=== PATIENT | female | born 1965 | race Caucasian/White ===

== ENCOUNTER → 2018-12-05 09:41 | Outpatient (CLI) | payer OTHER, SELFPAY ==
[2018-12-05 10:04] LABS: Add Manual Diff / Slide Review NO; Basophils Absolute Auto 0 /uL (0-100); Basophils Percent Auto 0.5 % (0-2); Eosinophils Absolute Auto 0 /uL (0-450); Eosinophils Percent Auto 0.9 % (2-4); Hemoglobin 14.2 g/dL (12.0-16.0); Lymphocytes Absolute Auto 1500 /uL (1100-4500); Lymphocytes Percent Auto 28.1 % (25-40); Mean Corpuscular HGB Conc 34.6 % (30-36); Mean Corpuscular Hemoglobin 32.6 PG (26-34); Mean Corpuscular Volume 94.4 fL (80-100); Monocytes Absolute Auto 400 /uL (0-900); Monocytes Percent Auto 7.1 % (3-14); Neutrophils Absolute Auto 3300 /uL (1500-7000); Neutrophils Percent Auto 63.4 % (50-75); Platelet Count 174 X10^3/uL (150-400); Red Blood Cell Count 4.34 X10^6/uL (4.0-5.2); Red Cell Distribution Width 13.2 % (11.6-14.8); White Blood Cell Count 5.2 X10^3/uL (4.5-11.0)
[2018-12-05 10:19] LABS: Carbon Dioxide 26 mmol/L (22-32); Chloride 106 mmol/L (98-107); HEMOLYSIS < 15 (0-50); Potassium 3.8 mmol/L (3.4-5.1); Sodium 142 mmol/L (137-145)
== END ==
PROVIDERS: Family Provider Family Medicine; PCP Family Medicine; Visit Provider Orthopaedic Surgery
DX: M17.11 Unilateral primary osteoarthritis, right knee (principal); Z01.818 Encounter for other preprocedural examination; Z01.812 Encounter for preprocedural laboratory examination
CPT/HCPCS: 36415; 80051; 85025; 93005

== ENCOUNTER 2018-12-12 09:04 | Inpatient (IN) | payer OTHER, SELFPAY ==
[2018-12-05 12:32] VITALS: BMI 20.8
[2018-12-12] VITALS (12 sets, daily range): BP systolic 88–130; BP diastolic 47–76; PULSE 54–80; RESP 13–20; TEMP 35.5–36.8; O2SAT 92–100; BMI 20.8
--- NOTE | 2018-12-12 09:26 | DI.RAD.S_ITS ---
PROCEDURE: XR KNEE RT 1TO2V INDICATIONS: TKA TECHNIQUE: 2 view(s) of the knee acquired. COMPARISON: None. FINDINGS: Bones: Patient is status post knee joint arthroplasty. Hardware components are in expected positions. Visualized bony structures are intact. Soft tissues: Overlying postoperative changes are noted. IMPRESSION: Expected postoperative appearance. Dictated by: Silverio Downey M.D. on 12/12/2018 at 15:56 Approved by: Silverio Downey M.D. on 12/12/2018 at 15:56
--- NOTE | 2018-12-12 09:28 | PM.PREOP ---
Pre-operative Note Interval Note History & Physical reviewed/Exam performed by Physician: Yes Changes to H&P: No
--- NOTE | 2018-12-12 09:30 | P.OP_ITS ---
Operative Date/Time/Diagnoses Date of procedure: 12/12/18 Time of procedure: 12:24 Pre-op diagnosis: Right knee osteoarthritis Post-op diagnosis: same Procedure & Clinicians Procedure: Right total knee arthroplasty Same procedure as scheduled: Yes Indications: The patient presents today for total knee arthroplasty after failure of conservative treatment. The nature of the procedure including the risks and benefits, alternatives, postoperative course and expected outcome were discussed and all questions answered. Consent was obtained. Operative site confirmed and marked. Surgeon: Sebas Dumont Technical Maintenance Specialist: Daniel Dhaliwal Anesthesia Type: General, Peripheral nerve block and Local Operative Notes Findings: Osteoarthritis with valgus alignment. Closure Type: primary Specimen(s): none sent Prosthetic devices, grafts, tissues, transplants, or devices: Zelaya and Nephew Rocky BCS: 3 femoral component, 2 tibial component, 9 mm BCS polyethylene tray and 29 mm round patella Applied: implant(s) Estimated Blood Loss (mL): 20 Blood products transfused: none Tourniquet time (min): 50 Procedure in detail: The patient was taken to the operative suite and placed under general anesthesia with an adductor nerve block. There was 10 cc of Exparel in then the block. The patient was given prophylactic antibiotics prior to surgery. The patient was also given tranexamic acid, 1 g, just prior to surgery for postoperative hemostasis. The lateral knee was prepped and the joint injected with 20 mL of 1% Lidocaine with epinephrine. The knee was then prepped and draped in usual sterile fashion. The leg was exsanguinated with an Esmarch dressing and the tourniquet raised to 250 torr. A 15 cm anterior incision was made. Next a medial trivector arthrotomy was made. The extensor mechanism was marked to ensure accurate repair. Initial exposing dissection was carried out medially and laterally. The knee was then extended and the patellar thickness was measured and a cut made removing approximately 9 mm of bone. The patella was then sized and drilled. Some excess lateral bone was excised and the patellofemoral ligament released. The knee was then flexed and the intramedullary femoral guide latosha placed. The distal femoral cut was made in 6 ? of valgus at the + 0 position. The femoral size was measured and the appropriate cutting block was then placed and the anterior, posterior and chamfer cuts made. The extra medullary tibial alignment latosha was then placed along the anatomic axis of the tibia approximating the normal slope. The guide was set to remove approximately 7-8 mm from the less affected medial side. The proximal tibial cut was then made with an oscillating saw. All meniscus and bony debris was then removed. Flexion extension gaps were checked. No specific balancing was required. The knee was slightly tighter medially than laterally both in flexion and extension. The soft tissues were then injected with a combination of 20 mL of half percent Marcaine with epinephrine and 10 mL of Exparel. The trial components were then placed. The knee went into full extension and flexion beyond 120?. There was good medial- lateral balance throughout motion with just slight increased laxity laterally. Patellar tracking was excellent. The trial components were removed and the knee was cleansed with Pulsavac irrigation and dried. The final components were cemented in with high viscosity vacuum mixed bone cement with antibiotics. The knee was held in extension and the patellar clamp until the cement had adequately cured. The knee was irrigated and inspected for any further debris. The knee was then irrigated with dilute Betadine solution. The extensor mechanism was closed with 5 interrupted #1 Vicryl sutures in 90 degrees of flexion. The joint was then injected with a combination of 1 g of tranexamic acid and 20 mL of quarter percent Marcaine with epinephrine. The subcutaneous tissue was closed with 2-0 Vicryl. The skin was closed with nella and surgical adhesive. An Aquacell dressing and Mustapha wrap were then applied. The patient tolerated the procedure well and was returned to recovery room in good condition. Complications: none Condition: stable Disposition: PACU Plan for aftercare: Critical access hospital protocol for total knee arthroplasty.
[2018-12-12] MEDS: LACTATED RINGERS 1,000 ML 42 ML IV ×2 (09:47→12:11)
[2018-12-12] MEDS: ACETAMINOPHEN 325 MG TABLET 975 MG PO ×3 (09:48→22:27)
[2018-12-12] MEDS: CELECOXIB 200 MG CAPSULE PO (09:48)
[2018-12-12] MEDS: PREGABALIN 75 MG CAPSULE PO (09:48)
[2018-12-12] MEDS: MIDAZOLAM 2 MG/2 ML VIAL IV (10:27)
[2018-12-12] MEDS: fentaNYL 100 MCG/2 ML INJ 50 MCG IV (10:28)
[2018-12-12] MEDS: CEFAZOLIN 2 GM/100 ML FROZ.PIGGY IV ×2 (10:58→18:12)
[2018-12-12] MEDS: BUPIVACAINE 0.25% W/ EPI (PF) 40 ML, BUPIVACAINE LIPOSOME 266 MG, SODIUM CHLORIDE 0.9% ... INJ (11:33)
[2018-12-12] MEDS: LIDOCAINE 1% W/EPI INJ 20 ML INJ (11:41)
--- NOTE | 2018-12-12 11:45 | SUR.OPER ---
Supine on padded OR bed. Pillow under head, arms secured on padded armboards <90 degree abduction. Safety belt across torso. Non-operative leg secured with tape over blanket over lower leg. Operative leg secured in DeMayo/Hong positioner. Foam padded brace at thigh of operative leg.
[2018-12-12] MEDS: BUPIVACAINE 0.25% W/ EPI (PF) 20 ML, TRANEXAMIC ACID 1,000 MG, SODIUM CHLORIDE 0.9% 10 ML INJ (12:12)
[2018-12-12] MEDS: LACTATED RINGERS 1,000 ML 125 ML IV (15:06)
[2018-12-12] MEDS: HYDROMORPHONE 2 MG TABLET PO ×2 (15:06→22:37)
--- NOTE | 2018-12-12 16:10 | PC.NURSE ---
Ortho: Recieved from pacu 53 y/o f s/p tka. Hx of thoracotomy on the rt upper and middle lobes. Pt is a current smoker, lungs are actually clear but diminished. Pt on Ra is 99-100%. sl nausea and then a short time later did have a small emesis. Pt given zofran per request. nausea resolved. Block is starting to wear off and started having some pain. Dilaudid and tylenol given po and will recheck with pt to make sure it is effective. Rt leg with katerine wrap and aquacel dressing is underneath. Ice pack in place, moves toes sl. Has brisk cap refill, ppp feet =/warm. During report pt reporting she is still in pain and the oncoming nurse will give some more pain medication for her. SCD also turned off at this time as pt reports the pumping is causing her to hurt more. Will see how new pain meds work. Cont w/poc.
[2018-12-12] MEDS: HYDROMORPHONE 0.5 MG INJ IV (18:04)
[2018-12-12] MEDS: KETOROLAC 30 MG/ML VIAL IV (18:32)
--- NOTE | 2018-12-12 19:10 | PC.NURSE ---
Addendum entered by Sada Bates R.N. 12/12/18 23:04: pt up to BS to void. Reporting 2/10 pain and no issues with voiding. Post-void bladder scan resulted in 14mL in bladder. Administered PO Dilaudid to be proactive with pain management. Original Note: SYBIL Shift pt AO and receptive to care. Aquacel with Mustapha wrap CDI. LR infusing at 125/hr with intermittent ABX. pt reporting 8/10 pain at start of shift. No breakthrough pain medications in JUL so I called Dr. Dumont. Julia gave a telephone order for ketoralac 30mg, IV NOW and a verbal for breakthrough protocol 0.5mg IV Dilaudid. After a Pixis issue, I administered 0.5 Dilaudid IV at 1800 to relieve bladder spams increasing to a 9/10. pt voided 500 at BSC and pain decreased to 5/10. Obtained a post-void bladder scan with resulted with 380mL still in bladder. After a conversation, pt agreed to eat dinner and try and void again before needing to be catheterized. I also administered 30mg IV Ketoralac IV (one-time dose). pt vomited 20mL of mostly cucumber and tomato, but felt relieved and requested soup instead of her salad. pt resting with eyes closed currently.
[2018-12-12] MEDS: ASPIRIN EC 81 MG TABLET PO (22:27)
--- NOTE | 2018-12-12 23:05 | PC.NURSE ---
Nicotine patch mentioned that asked for a nicotine patch to be ordered, although I do not see it listed in pt's MAR. I discussed with that I will add this to my report and that they should remind the PA tomorrow morning.
[2018-12-13] VITALS: BP 106/74; PULSE 70; RESP 14; TEMP 36.8; O2SAT 96
[2018-12-13] MEDS: LACTATED RINGERS 1,000 ML 125 ML IV (00:04)
[2018-12-13] MEDS: HYDROMORPHONE 2 MG TABLET PO ×3 (01:43→07:59)
[2018-12-13] MEDS: CEFAZOLIN 2 GM/100 ML FROZ.PIGGY IV (01:43)
[2018-12-13 04:40] VITALS: BP 118/73; PULSE 81; RESP 20; TEMP 36.9; O2SAT 95
[2018-12-13 05:58] LABS: Hematocrit 30.6 % (36-46); Hemoglobin 10.4 g/dL (12.0-16.0)
[2018-12-13 07:30] VITALS: BP 119/62; PULSE 77; RESP 13; TEMP 37.3; O2SAT 98
[2018-12-13] MEDS: ASPIRIN EC 81 MG TABLET PO (07:59)
[2018-12-13] MEDS: MELOXICAM 7.5 MG TABLET 15 MG PO (07:59)
[2018-12-13] MEDS: ACETAMINOPHEN 325 MG TABLET 975 MG PO (08:00)
[2018-12-13] MEDS: NICOTINE 21 MG PATCH TOP (09:23)
--- NOTE | 2018-12-13 09:30 | PT.IIE ---
Current Diagnoses Unilateral post-traumatic osteoarthritis, right knee (12/12/18) Surgery Performed Operation Date: 12/12/18 11:15 Actual Procedures p Total Knee Arthroplasty(Right) - Sebas Dumont MD Surgical History (Last Updated 12/05/18 @ 13:20 by Rere Harris, RN) H/O total hysterectomy with bilateral salpingo-oophorectomy (BSO) (Acute ~1998) History of bladder surgery (Acute) History of thoracic surgery (Acute ~10/2005) Hx of arthroscopy of right knee (Acute 01/02/17) Hx of dilation and curettage (Acute) Hx of exploratory laparotomy (Acute) Hx of oral surgery (Acute 11/29/18) S/P breast lumpectomy (Acute) Medical History (Last Updated 12/05/18 @ 13:24 by Rere Harris RN) Cervical cancer (Acute ~1998) Chronic cough (Acute) Current every day smoker (Acute) PADRON (dyspnea on exertion) (Acute) Depression (Acute) Endocrine pancreas disorder (Acute ~2017) Esophageal dilatation (Acute ~2017) Fistula (Acute) Lung cancer (Acute ~09/2005) Physical Therapy Inpatient Evaluation/Re-Eval M1 PT/OT-IP Prior Functional Status Start: 12/13/18 13:15 Freq: NEEDED Status: Active Protocol: Document 12/13/18 09:30 AB (Rec: 12/13/18 13:24 [id number]) Medical Review Prior Functional Status Medical History Reviewed Yes Communication able to make needs known Mobility and Gait pt stated that she is independent with all mobilities and ambulation without AD Social History Household Members spouse Living Arrangements House Number of Floors (Floors) One Floor Number of Stairs To Enter/Railing? 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 PT-IP Current Condition Start: 12/13/18 13:15 Freq: NEEDED Status: Active Protocol: Document 12/13/18 09:30 AB (Rec: 12/13/18 13:24 [id number]) Physical Therapy Current Condition Current Condition Evaluation Date 12/13/18 Treatment Diagnosis s/p R TKA; difficulty in walking Onset Date 12/12/18 Weight Bearing Status Weight Bearing Status Weight Bear as Tolerated M3 PT-IP Subjective Start: 12/13/18 13:15 Freq: NEEDED Status: Active Protocol: Document 12/13/18 09:30 AB (Rec: 12/13/18 13:24 [id number]) Subjective Physical Therapy Visit Type Type Initial Evaluation Visit Start Time 09:30 Visit Stop Time 10:15 Total Visit Minutes 45 Number of BIRD SITTER Visits 0 Physical Therapy Visit Comments Patient Comments pt agreed to do PT; spouse present Therapy Pain Assessment Pain When Pain Assessed During Mobility Pain Present Pain Present Pain Reported Location Right Knee Intensity 3 Scale Used Numeric (1 - 10) Pain Management Techniques Apply Cold Re-positioning Timing of Activity with Medications M4 PT-IP Mobility and Gait Start: 12/13/18 13:15 Freq: NEEDED Status: Active Protocol: Document 12/13/18 09:30 AB (Rec: 12/13/18 13:24 [id number]) PT-Bed Mobility Assessment Supine to Sit Supine to Sit Standby Assistance Sit to Supine Sit to Supine Standby Assistance Scooting Scooting to Edge of Bed Standby Assistance PT-Transfer Assessment Sit to and From Stand Sit to and from Stand Standby Assistance Equipment Transfer Assistive Device Gait Belt Front Wheeled Walker Orthotic/Prosthetic Devices or Brace: No Transfers Transfer Destination Chair Transfer Technique pt ambulated using FWW Transfer Ability Level of Assist Standby Assistance Contact Guard Assistance Use of Upper Extremities Gait Assessment Gait Gait Assistance Required: Standby Assistance Contact Guard Assist Distance (Feet) 100 Able to Maintain Weight Bearing Status Yes During Gait Assistive Devices Assistive Device Gait Belt Front Wheeled Walker Orthotic/Prosthetic Devices or Brace: No Gait Deviations General Gait Pattern Antalgic Decreased Stride Length Decreased Feet Clearance Narrow Based Gait Factors Limiting Gait Function Factors Limiting Gait Function Decreased Activity Tolerance Decreased Strength Limited Range of Motion Pain Poor Balance Poor Safety Awareness Comments Gait Comments pt ambulated ~ 100 ft x 2 using FWW SBA to CGA. caregiver training conducted. educated spouse on how to use safety belt and how to assist pt. spouse was able to assist pt with ambulation. Stair Climbing Assessment Evaluation Level of Assist On Stairs Minimal Assistance Devices Stair Climbing Assistive Devices Front Wheel Walker Technique/Endurance Stair Climbing Direction Ascend and Descend Stair Climbing Technique Step to Step Number of Steps Climbed 1 Query Text: Stair Climbing Set # Repetitions (reps) 2 Comments Stair Climbing Comments pt completed up/down platform step min A and cues. Spouse educated on how to assist pt and was able to assist pt with stair climbing safely. PT-Balance Assessment Sitting Balance and Reactions Static Sitting Balance Ability Good Dynamic Sitting Balance Ability Good Standing Balance and Reactions Static Standing Balance Ability Fair Dynamic Standing Balance Ability Fair Device Used FWW M5 PT-IP Objective Assessments Start: 12/13/18 13:15 Freq: NEEDED Status: Active Protocol: Document 12/13/18 09:30 AB (Rec: 12/13/18 13:24 [id number]) Orientation Orientation/Cognition Level of Alertness Alert Orientation Name Age Birthday Month Date Year Day of Week Place Situation Safety Awareness Understands Safety Issues Memory Description No Deficits Noted Gross Range of Motion Lower Extremity ROM Assessment Right Impaired Impairments R knee: flexion: ~ 70 deg extension: lacking ~ 20 deg Strength Lower Extremity Strength Hip 4-/5 Knee 3+/5 Coordination Assessment Gross Coordination Gross Coordination WNL Sensation Assessment Sensation Gross Sensation WNL Muscle Tone Muscle Tone WNL Yes M6 PT-IP Treatment Start: 12/13/18 13:15 Freq: NEEDED Status: Active Protocol: Document 12/13/18 09:30 AB (Rec: 12/13/18 13:24 AB [id number]) Physical Therapy Treatment Exercises Exercises Quad Sets Heel Slides Education Education Provided Precautions Weight Bearing Status Post-Op Packet Safety M7 PT-IP Assessment and Plan Start: 12/13/18 13:15 Freq: NEEDED Status: Active Protocol: Document 12/13/18 09:30 AB (Rec: 12/13/18 13:24 [id number]) PT Summary Assessment and Plan Potential Rehabilitation Potential Good Status of Condition at Evaluation Stable Summary Impairments Pain ROM Strength Balance Bed Mobility Transfers Gait Activity Tolerance Assessment Summary pt requiring SBA to CGA with ambulation and min A for stair climbing. caregiver training conducted and spouse was able to assist pt safely. pt plans to go home today and stated that she is set up for outpt PT. Goals Bed Mobility Goal Independent Transfer Goal Independent Front Wheeled Walker Gait Goal Independent Front Wheel Walker Gait Distance 200 Other Goals up/down 2 platform steps using FWW SBA Days to Meet Goals 3 Frequency of Treatment Frequency Of Treatment Twice a Day Treatment Plan Physical Therapy Treatment Plan Bed Mobility Training Transfer Training Gait Training Therapeutic Exercise Balance Retraining Post Op Education Discharge Planning Hot or Cold Pack Neuromuscular Re-ed Coordination Retraining Manual Therapy Recommendations To Nursing Amount of Assist Needed 1 Person Assist Discharge Recommendations PT Discharge Recommendations Home with Assistance Outpatient PT
[2018-12-13 09:38] VITALS: PULSE 68; RESP 16; O2SAT 98
--- NOTE | 2018-12-13 10:36 | PC.NURSE ---
Addendum entered by Elvie Hopper R.N. 12/13/18 13:48: Discharge: Patient reported pain well-controlled with Oxycodone. IV dc'd intact. Reviewed all d/c instructions thoroughly with patient. She is [facility] so already has scripts at home. Knows to take baby aspirin BID for 30 days post op. Dressing to stay on until follow up, no baths/hot tubs. Reviewed conditions with which to call MD (s/sx infection, uncontrolled pain, etc.) F/U appts already scheduled as well as outpatient PT. Verbalized understanding of all instructions and stated no further questions. All personal belongings collected and sent with patient. Wheeled out to private vehicle by nursing staff. Original Note: Shift summary: Alert and oriented X3. Mobilizing with 1-person SBA and FWW. Has been cleared by PT to d/c home today. Dressing to R knee C/D/I. Circulation/sensation WNL to BLE's, feet pink & warm, cap refill <2 sec, PP+. Can't tolerate SCD's but is ankle waving/pumping independently. Tolerating PO's without issue, IV saline locked. Plan is to try Oxycodone for next pain med to make sure it covers her pain (since it's what she has already filled for pain meds at home). Patient aware of the same and agreeable. Up in chair now, asking to get back into bed. Calls appropriately. Light in reach, bed alarm active.
[2018-12-13] MEDS: OXYCODONE IR 10 MG TABLET PO (11:14)
[2018-12-13 11:31] VITALS: BP 131/61; PULSE 69; RESP 16; TEMP 36.7; O2SAT 98
--- NOTE | 2018-12-13 11:33 | PM.DS.1 ---
History of Present Illness Date Patient Seen: 12/13/18 Time Patient Seen: 11:33 Chief complaint: [id number] Narrative: Hospital day 2, postop day 1 following right total knee arthroplasty by Dr. Dumont. Patient remained stable postoperatively. She is not any physical therapy yet. She is a [facility] patient. She does have prescriptions at home for oxycodone, Vistaril and meloxicam. Patient is desiring to go home today if she is able. She was started on Nicoderm patch 21 mg. She has been taking Dilaudid 2 mg p.o. in the hospital. Discharge Providers Date of admission: 12/12/18 09:04 Discharge Date: 12/13/18 Primary care physician: Andry Eisenberg MD Consults: 12/12/18 14:19 Consult to Discharge Planning Routine Comment: Consult to Physical Therapy Evaluate & Treat Comment: Physician Instructions: postop TKA protocol Consult to Respiratory Therapy Evaluate & Treat Comment: Physician Instructions: Evaluate and treat Discharge provider: Selvin Wang PA-C Summary Discharge Diagnosis: Status post right total knee arthroplasty Hospital Course: Patient brought to hospital on 12/12/2018 for above-noted surgery. She remained stable postoperatively. Progressed with physical therapy. Ready for discharge home on postop day 1. Status at Discharge Cognitive/behavioral status at discharge: oriented Functional status at discharge: uses cane/walker Overall status at discharge: patient is progressing back to baseline Time Spent with Patient Less than 30 minutes Exam Vital Signs (past 8 hours): - 12/13/18 04:40 12/13/18 07:30 12/13/18 09:38 Temperature 98.4 F 99.1 F Pulse Rate 81 77 68 Respiratory Rate 20 13 16 Blood Pressure 118/73 119/62 Pulse Oximetry 95 98 98 12/13/18 11:31 Temperature 98.1 F Pulse Rate 69 Respiratory Rate 16 Blood Pressure 131/61 Pulse Oximetry 98 Fraction of Inspired Oxygen 21 Oxygen Delivery Method Room Air Oxygen Flow Rate 0 Narrative Exam Narrative: Alert, oriented no acute distress resting in chair. Legs. Mustapha wrap an Aquacel dressing to right knee is dry without drainage or inflammation. No calf pain or swelling. Pulses symmetrical. Objective Labs Result Diagrams: 12/13/18 05:22 Labs: Laboratory Results - last 24 hr 12/13/18 05:22 Hgb 10.4 L Hct 30.6 L Discharge Plan Discharge Plan Patient Disposition: Home Discharge comment: Patient is a [facility] patient. She has prescriptions at home for oxycodone, Vistaril and Mobic. Scheduled to go to [facility] in [place]. Use aspirin 81 mg b.i.d. times 30 days postop. Discharge Med Rec/Prescriptions Prescriptions: New acetaminophen 325 mg Tablet 975 mg PO TID Qty: 30 RF: 0 aspirin 81 mg Tablet,Delayed Release (Dr/Ec) 81 mg PO BID Qty: 60 RF: 0 No Action No Known Home Medications RF: 0 Follow up/Referrals: Andry Eisenberg MD [Primary Care Provider] - Provider Discharge Instructions Diet: Diet as Tolerated Activity: Ambulate as tolerated. Use walker as needed. Range of motion of right knee as much as possible. Cold/Heat Therapy: Cold pack to right knee as needed. Skin/Wound/Dressing Care Report to your healthcare provider any signs of infection, such as:: chills, fever, night sweats, increased pain, unusual drainage and unusual redness Dressing: Keep Aquacel dressing in place until postop visit. Visit Report/Discharge Packet Instructions: DI for Knee Replacement Discharge Data Primary Care Provider: Andry Eisenberg Attending Provider: Sebas Dumont Admit Date/Time: 12/12/18 09:04
--- NOTE | 2018-12-13 11:36 | P.DS_ITS ---
History of Present Illness Date Patient Seen: 12/13/18 Time Patient Seen: 11:33 Chief complaint: [id number] Narrative: Hospital day 2, postop day 1 following right total knee arthroplasty by Dr. Dumont. Patient remained stable postoperatively. She is not any physical therapy yet. She is a [facility] patient. She does have prescriptions at home for oxycodone, Vistaril and meloxicam. Patient is desiring to go home today if she is able. She was started on Nicoderm patch 21 mg. She has been taking Dilaudid 2 mg p.o. in the hospital. Discharge Providers Date of admission: 12/12/18 09:04 Discharge Date: 12/13/18 Primary care physician: Andry Eisenberg MD Consults: 12/12/18 14:19 Consult to Discharge Planning Routine Comment: Consult to Physical Therapy Evaluate & Treat Comment: Physician Instructions: postop TKA protocol Consult to Respiratory Therapy Evaluate & Treat Comment: Physician Instructions: Evaluate and treat Discharge provider: Selvin Wang PA-C Summary Discharge Diagnosis: Status post right total knee arthroplasty Hospital Course: Patient brought to hospital on 12/12/2018 for above-noted surgery. She remained stable postoperatively. Progressed with physical th erapy. Ready for discharge home on postop day 1. Status at Discharge Cognitive/behavioral status at discharge: oriented Functional status at discharge: uses cane/walker Overall status at discharge: patient is progressing back to baseline Time Spent with Patient Less than 30 minutes Exam Vital Signs (past 8 hours): - 12/13/18 04:40 12/13/18 07:30 12/13/18 09:38 Temperature 98.4 F 99.1 F Pulse Rate 81 77 68 Respiratory Rate 20 13 16 Blood Pressure 118/73 119/62 Pulse Oximetry 95 98 98 12/13/18 11:31 Temperature 98.1 F Pulse Rate 69 Respiratory Rate 16 Blood Pressure 131/61 Pulse Oximetry 98 Fraction of Inspired Oxygen 21 Oxygen Delivery Method Room Air Oxygen Flow Rate 0 Narrative Exam Narrative: Alert, oriented no acute distress resting in chair. Legs. Mustapha wrap an Aquacel dressing to right knee is dry without drainage or inflammation. No calf pain or swelling. Pulses symmetrical. Objective Labs Result Diagrams: 12/13/18 05:22 Labs: Laboratory Results - last 24 hr 12/13/18 05:22 Hgb 10.4 L Hct 30.6 L Discharge Plan Discharge Plan Patient Disposition: Home Discharge comment: Patient is a [facility] patient. She has prescriptions at home for oxycodone, Vistaril and Mobic. Scheduled to go to [facility] in [place]. Use aspirin 81 mg b.i.d. times 30 days postop. Discharge Med Rec/Prescriptions Prescriptions: New acetaminophen 325 mg Tablet 975 mg PO TID Qty: 30 RF: 0 aspirin 81 mg Tablet,Delayed Release (Dr/Ec) 81 mg PO BID Qty: 60 RF: 0 No Action No Known Home Medications RF: 0 Follow up/Referrals: Andry Eisenberg MD [Primary Care Provider] - Provider Discharge Instructions Diet: Diet as Tolerated Activity: Ambulate as tolerated. Use walker as needed. Range of motion of right knee as much as possible. Cold/Heat Therapy: Cold pack to right knee as needed. Skin/Wound/Dressing Care Report to your healthcare provider any signs of infection, such as:: chills, fever, night sweats, increased pain, unusual drainage and unusual redness Dressing: Keep Aquacel dressing in place until postop visit. Visit Report/Discharge Packet Instructions: DI for Knee Replacement Discharge Data Primary Care Provider: Andry Eisenberg Attending Provider: Sebas Dumont Admit Date/Time: 12/12/18 09:04
--- NOTE | 2018-12-13 14:23 | CM.DANOTE ---
Discharge Planning/Care Management DCP: assessment: case received, EMR reviewed and discussed in Team Rounds. PT noted that pt was on track for a d/c to home today. She admitted yesterday for a planned surgery with Dr. Dumont. Payer: [facility]. Went in later to meet with pt and confirm her plans. She had already been ok'd for d/c home and had left with her at about 1300. OUTPT PT was planned. CM Discharge Assessment Start: 12/13/18 14:21 Freq: Status: Discharge Protocol: Document 12/13/18 14:22 ITV (Rec: 12/13/18 14:22 ITV [id number]) Discharge Planning Assessment Advance Directives? No: Declines further information History Provided By Medical Record Prior Living Arrangements House Household Members spouse Is patient alert and oriented? Yes Review Status In Process Pre-Anesthesia Assessment Start: 12/05/18 12:32 Freq: Status: Complete Protocol: Document 12/05/18 12:32 CAB (Rec: 12/05/18 13:30 CAB [id number]) Pre-Anesthesia Assessment Patient Also Known As (VANE) Emma Patient Information Reviewed Via Phone Assessment Assessment Completed With Patient Diagnostic Results BMP/CMP CBC EKG Comment Labs/EKG @ [facility] 12/05/18 Primary Care Provider Andry Eisenberg Seen Specialist in Last 12 Months Yes Specialist Seen Orthopedist Primary Language Syriac Help Desk Analyst Required No Height 169.55 cm Weight 59.874 kg Body Mass Index (BMI) 20.8 Hearing Ability Normal Visual Assist Glasses Dentition Type Teeth, Natural Present Teeth, Missing Barriers to Learning None Hx Anesthesia Reactions Yes: PONV Hx Family Anesthesia Reaction No: Unknown, pt adopted Hx Malignant Hyperthermia No Hx Blood Transfusions No Anesthesia Review Requested No alcohol intake current alcohol intake frequency holidays/special occasions only Smoking Status Current every day smoker Tobacco type cigarettes Smoking packs per day 0.5 Substance Use Type marijuana Comment Pt advised not to smoke marijuana 24 hours prior to surgery Pain Present Pain Reported Musculoskeletal Symptoms Abnormal Gait Difficulty Walking Joint Pain Neck Pain History of Falling (Recent or History of Yes ) Patient is completely paralyzed or No completely immobile Mental Status Oriented to own ability Is patient on oxygen? No Does patient have PADRON/SOB No Hx Sleep Apnea No Comment Hx of right upper and middle lobe resection 2005 Currently Taking a Beta Debbie No Can You Climb a Flight of Stairs Without Yes SOB Hx Chest Pain No Hx SOB No Hx Syncope or Dizziness No Anti-Coagulant Therapy No Has a Neurology Technologist No Cardiac Testing No Hx Pacemaker/ICD No Pacemaker Rep Required? No Diet Type At Home Regular dysphagia No Comment Currently on soft food diet r/ t recent extraction of 3 teeth Bladder Pattern Urgency Urinary Catheter Present No Hx Urinary Self Catheterization No Diabetes No Patient No Lactating No Hx Drug Resistant Organism No Presence of External or Internal Medical No Devices Have you traveled outside the [facility] in the last 30 days? Marital Status Lives With spouse Prior Living Arrangements House Number of Floors (Floors) One Floor Support System Family Spouse Patient Discharge Plan Description Return Home Comment Pt not advised on length of stay per surgeon's office Feels Safe in Current Environment Yes Been Physically Hurt or Threatened By a No Person in Current Environment Do you have thoughts of harming yourself None or others? Are you currently considering suicide? No Do you have a plan to hurt yourself or No Plan others? Do You Have Any Spiritual Beliefs That No May Affect Your HC Choices? Do You Have Any Cultural Practices That No May Affect Your HC Choices? Comment Caodaism Who Can We Speak to About Patient's Care Family, friends Identifying Code for Release of Patient Declines to issue Information Health Care Proxy/Next of Kin Koffi () Health Care Proxy Emergency Contact Name Koffi () Emergency Contact Advance Directives? No: Declines further information Power of Chiropractic Doctor No PAC Instructions Do not shave/clip surgical site Durable medical equipment Medications to take/avoid Nasal antibiotic No ETOH/petroleum product on skin DOS NPO Post-op transportation Pre-surgical wash Sturdy shoes/comfortable clothes Do not bring valuables and remove jewelry
== END 2018-12-13 13:55 | disposition home or self-care (01) | DRG 302 ==
PROVIDERS: Admitting Provider Orthopaedic Surgery; Family Provider Family Medicine; PCP Family Medicine; Visit Provider Orthopaedic Surgery
PROC: 0SRC0JZ Replacement of Right Knee Joint with Synthetic Substitute, Open Approach (ICD-10-PCS; CPT 27447; principal; 2018-12-12 11:15)
DX: M17.31 Unilateral post-traumatic osteoarthritis, right knee (principal); F17.210 Nicotine dependence, cigarettes, uncomplicated; W18.30XD Fall on same level, unspecified, subsequent encounter
CPT/HCPCS: 36415; 73560; 85014; 85018; 94762; 97161; 97530; 99406; C1776; C9290; J0690; J1170; J1885; J2250; J2704; J3010